=== PATIENT | male | born 1985 | race Caucasian/White ===

== ENCOUNTER 2017-02-28 14:05 | Emergency (ER) | payer MEDICAID ==
[~2017-02-28] VITALS: Ht 172.7 cm; Wt 70.3 kg
--- NOTE | 2017-02-28 14:19 | NUR ---
AMBULATORY TO ER BED 07. C/O L LOWER BACK PAIN X 2 DAYS WHILE DOING SQUATS. 05/29 NON RADIATING PAIN. TOOK ANTI INFLAMMATORY W/ NO RELIEF. DENIES ANY OTHER COMPLAINTS. AWAITING MD VU.
--- NOTE | 2017-02-28 14:57 | NUR ---
Patient discharged to home in stable condition. Written and verbal after care instructions given. Patient verbalizes understanding of instruction.
[2017-02-28 14:58] VITALS: BP 113/65
== END 2017-02-28 14:59 | disposition home or self-care (01) ==
LOC: ER 14:07
DX: S39.012A Strain of muscle, fascia and tendon of lower back, initial encounter (principal); X58.XXXA Exposure to other specified factors, initial encounter; Y92.89 Other specified places as the place of occurrence of the external cause; Y93.89 Activity, other specified; Y99.8 Other external cause status
CPT/HCPCS: 99283; A4606; Z7610

== ENCOUNTER 2018-05-29 21:39 | Emergency (ER) | payer MEDICAID ==
[~2018-05-29] VITALS: Ht 165.1 cm; Wt 49.9 kg
[2018-05-29 22:53] VITALS: BP 116/79
[2018-05-29] MEDS ORDERED: IBUPROFEN 600 MG TABLET PO ONE ×2 (23:00→23:15)
== END 2018-05-29 23:39 | disposition home or self-care (01) ==
LOC: ER 21:45
DX: G56.02 Carpal tunnel syndrome, left upper limb (principal)
CPT/HCPCS: 73100; 99284; A4606; Z7610

== ENCOUNTER 2019-02-09 11:48 | Emergency (ER) | payer MEDICAID ==
[~2019-02-09] VITALS: Ht 170.2 cm; Wt 74.8 kg
--- NOTE | 2019-02-09 12:10 | NUR ---
patient presented to the ER c/o congestion and pink eye with discharges. On room air, breathing evenly. Ambulatory with steady gait. Kept comfortable, will continue to monitor accordingly.
[2019-02-09] MEDS ORDERED: ALBUTEROL FS 2.5 MG/3 ML VIAL.NEB NEB ONE (12:30)
[2019-02-09] MEDS ORDERED: ALBUTEROL FS 2.5 MG/3 ML VIAL.NEB ONE (12:35)
[2019-02-09 13:05] VITALS: BP 115/70
--- NOTE | 2019-02-09 13:06 | NUR ---
Patient discharged to home in stable condition. Written and verbal after care instructions given. Patient verbalizes understanding of instruction.
== END 2019-02-09 13:05 | disposition home or self-care (01) ==
LOC: ER 11:48
DX: H10.9 Unspecified conjunctivitis (principal); J40 Bronchitis, not specified as acute or chronic
CPT/HCPCS: 71045-TC

== ENCOUNTER 2019-02-17 22:46 | Emergency (ER) | payer BC, MEDICAID ==
[~2019-02-17] VITALS: Ht 172.7 cm; Wt 74.8 kg
[2019-02-17 22:54] VITALS: BP 121/73
== END 2019-02-17 23:31 | disposition home or self-care (01) ==
LOC: ER 22:56
DX: H66.91 Otitis media, unspecified, right ear (principal); R05 Cough
CPT/HCPCS: Z7502

== ENCOUNTER 2019-03-09 18:35 | Emergency (ER) ==
[~2019-03-09] VITALS: Ht 172.7 cm; Wt 74.8 kg
[2019-03-09 18:51] VITALS: BP 118/65
[2019-03-09] MEDS ORDERED: PENICILLIN G BENZATHINE 2.4 MMU/4 ML ML IM ONE ×2 (19:26→19:30)
--- NOTE | 2019-03-09 20:08 | NUR ---
Patient discharged to home in stable condition. Written and verbal after care instructions and rx given. Patient verbalizes understanding of instruction. no allergic or adverse reaction to the pcn noted. steady gait. pt denied SOB .
== END 2019-03-09 20:05 | disposition home or self-care (01) ==
LOC: ER 18:42
DX: J02.9 Acute pharyngitis, unspecified (principal)
CPT/HCPCS: 87070; 87880; 96372; 99283; J0558; 86403-TC

== ENCOUNTER 2019-04-02 19:38 | Emergency (ER) | payer MEDICAID ==
[~2019-04-02] VITALS: Ht 172.7 cm; Wt 74.8 kg
[2019-04-02 19:52] VITALS: BP 115/70
[2019-04-02] MEDS ORDERED: ACETAMINOPHEN ES 500 MG TABLET ONE (20:40)
[2019-04-02] MEDS ORDERED: LIDOCAINE /MPF 1% VIAL 5 ML VIAL ONE (20:40)
[2019-04-02] MEDS ORDERED: ACETAMINOPHEN 325 MG TABLET PO ONE (21:00)
== END 2019-04-02 21:42 | disposition home or self-care (01) ==
LOC: ER 19:39
DX: S60.131A Contusion of right middle finger with damage to nail, initial encounter (principal); W22.8XXA Striking against or struck by other objects, initial encounter; Y93.89 Activity, other specified; Y92.89 Other specified places as the place of occurrence of the external cause; Y99.8 Other external cause status
CPT/HCPCS: 11740; 73140; 99283; A6402; J3490

== ENCOUNTER 2019-07-02 23:38 | Emergency (ER) | payer MEDICAID ==
[~2019-07-02] VITALS: Ht 152.4 cm; Wt 74.8 kg
[2019-07-03] LABS: APPEARANCE,URINE Turbid (CLEAR); BILIRUBIN,URINE Negative (NEGATIVE); BLOOD, URINE Large Ery/uL (NEGATIVE); KETONES,URINE Negative (NEGATIVE); LEUKOCYTE ESTERASE ,URINE Negative (NEGATIVE); NITRITE, URINE Negative (NEGATIVE); PH,URINE 5.5 (5.0-8.0); PROTEIN,URINE 30 mg/dl (NEGATIVE); UGLUCOSE Negative (NEGATIVE); UROBILINOGEN,URINE 0.2 EU/dL (0.2)
--- NOTE | 2019-07-03 | NUR ---
PT C/C COUGH X1 MONTH. PT STATES "I HAD THREE SHOTS OF COGNAC AND NOTICED MY URINE WAS THE SAME COLOR COGNAC." DENIES PAIN. PT AOX4. NAD NOTED. RESP EVEN AND UNLABORED. STEADY GAIT. WILL CONTINUE TO MONITOR.
[2019-07-03 00:20] LABS: BACTERIA,URINE Moderate /HPF (None Seen); COLOR,URINE RED (YELLOW); RBC,URINE TOO NUMEROUS TO COUN /HPF (0-2); SQUAMOUS EPITHELIAL CELL,UR Few /HPF (None Seen)
[2019-07-03 00:58] LABS: BASOPHILS # (AUTO) 0.1 /CMM (0.0-0.2); BASOPHILS % (AUTO) 1.2 % (0.0-2.0); EOSINOPHILS % (AUTO) 3.5 % (0.0-6.0); HEMATOCRIT 41 % (39-51); HEMOGLOBIN 14.3 g/dL (13.5-17.5); LYMPHOCYTES # (AUTO) 2.7 /CMM (0.8-4.8); LYMPHOCYTES % (AUTO) 26.1 % (20.0-44.0); MEAN CORPUSCULAR HGB CONC 35 g/dl (31.0-36.0); MEAN CORPUSCULAR VOLUME 91 fL (80-96); MONOCYTES % (AUTO) 9.7 % (2.0-12.0); NEUTROPHILS # (AUTO) 6.1 /CMM (1.8-8.9); NEUTROPHILS % (AUTO) 59.5 % (43.0-81.0); PLATELET COUNT (AUTO) 222 /CMM (150-450); RED BLOOD CELL COUNT(AUTO) 4.52 MIL/uL (4.5-6.0); WHITE BLOOD COUNT (AUTO) 10.2 K/uL (4.3-11.0)
[2019-07-03 01:04] LABS: CALCIUM, SERUM 9.7 mg/dL (8.5-10.1); CREATININE 1.1 mg/dL (0.6-1.3); POTASSIUM 4.1 mmol/L (3.5-5.1)
--- NOTE | 2019-07-03 01:53 | NUR ---
PT LEFT UNIT FOR CT SCAN.
--- NOTE | 2019-07-03 02:02 | NUR ---
PT ARRIVED BACK ON UNIT FROM CT SCAN
[2019-07-03 03:01] VITALS: BP 122/66
--- NOTE | 2019-07-03 03:03 | NUR ---
Patient discharged to home in stable condition. Written and verbal after care instructions given. Patient verbalizes understanding of instruction. [place] ambulatory with a steady gait.
== END 2019-07-03 03:39 | disposition home or self-care (01) ==
LOC: ER 23:40
DX: N13.2 Hydronephrosis with renal and ureteral calculous obstruction (principal); R31.9 Hematuria, unspecified
CPT/HCPCS: 36415; 76770-TC; 80048-TC; 81000-TC; 82550-TC; 85025-TC; 87086-TC

== ENCOUNTER 2019-08-18 17:46 | Emergency (ER) | payer MEDICAID ==
[~2019-08-18] VITALS: Ht 172.7 cm; Wt 75.3 kg
--- NOTE | 2019-08-18 18:05 | NUR ---
neck stiffness, sore back. night sweats. symptoms x yesterday. PATIENT A/OX4, NO DISTRESS NOTED, BREATHING EVEN AND UNLABORED, ATTACHED TO THE RESISTOR COATER.
[2019-08-18] MEDS ORDERED: CYCLOBENZAPRINE 10 MG TABLET ONE (18:21)
[2019-08-18] MEDS ORDERED: KETOROLAC TROMETHAMINE INJ 60 MG/2 ML VIAL IM ONE ×2 (18:21→18:30)
[2019-08-18 18:24] LABS: BASOPHILS % (AUTO) 0.3 % (0.0-2.0); EOSINOPHILS % (AUTO) 0.5 % (0.0-6.0); HEMATOCRIT 44 % (39-51); HEMOGLOBIN 14.8 g/dL (13.5-17.5); LYMPHOCYTES # (AUTO) 0.9 /CMM (0.8-4.8); LYMPHOCYTES % (AUTO) 7.9 % (20.0-44.0); MEAN CORPUSCULAR HGB CONC 34 g/dl (31.0-36.0); MEAN CORPUSCULAR VOLUME 91 fL (80-96); MONOCYTES # (AUTO) 0.9 /CMM (0.1-1.30); MONOCYTES % (AUTO) 8.3 % (2.0-12.0); NEUTROPHILS # (AUTO) 9.3 /CMM (1.8-8.9); PLATELET COUNT (AUTO) 177 /CMM (150-450); RED BLOOD CELL COUNT(AUTO) 4.83 MIL/uL (4.5-6.0); WHITE BLOOD COUNT (AUTO) 11.2 K/uL (4.3-11.0)
[2019-08-18] MEDS ORDERED: IBUPROFEN 600 MG TABLET PO ONE ×2 (18:28→18:30)
[2019-08-18] MEDS ORDERED: CYCLOBENZAPRINE 10 MG TABLET PO ONE (18:30)
[2019-08-18 18:31] LABS: CALCIUM, SERUM 9.7 mg/dL (8.5-10.1); CREATININE 1.1 mg/dL (0.6-1.3); POTASSIUM 4.3 mmol/L (3.5-5.1)
--- NOTE | 2019-08-18 19:20 | NUR ---
Patient discharged to home in stable condition. Written and verbal after care instructions given. Patient verbalizes understanding of instruction.
[2019-08-18 19:21] VITALS: BP 132/89
== END 2019-08-18 19:22 | disposition home or self-care (01) ==
LOC: ER 17:46
DX: S16.1XXA Strain of muscle, fascia and tendon at neck level, initial encounter (principal); X58.XXXA Exposure to other specified factors, initial encounter; Y93.B9 Activity, other involving muscle strengthening exercises; Y92.89 Other specified places as the place of occurrence of the external cause; Y99.8 Other external cause status
CPT/HCPCS: 36415; 80048-TC; 85025-TC; J1885